=== PATIENT | male | born 1995 | race African-American/Black ===

== ENCOUNTER 2018-10-08 22:26 | Emergency (ER) | payer OTHER, SELFPAY ==
--- NOTE | 2018-10-09 00:27 | ER ---
Nurse's Notes [facility] Name: Cuate Regalado Age: 23 yrs Sex: Male : 1995 Arrival Date: 10/08/2018 Time: 22:27 Bed 14 Private MD: Diagnosis: Encounter for general adult medical examination without abnormal findings Presentation: 10/08 22:59 Presenting complaint: Patient states: he has had abdominal pain over the weekend with 3 bb episodes of vomiting Tuesday night and diarrhea, pt states pain has improved but he missed 2 days of work and needs a work note. 23:46 Transition of care: patient was not received from another setting of care. Onset of ak1 symptoms is unknown. Risk Assessment: Do you want to hurt yourself or someone else? Patient reports no desire to harm self or others. Initial Sepsis Screen: Does the patient meet any 2 criteria? No. Patient's initial sepsis screen is negative. Does the patient have a suspected source of infection? No. Patient's initial sepsis screen is negative. Care prior to arrival: None. 23:46 Method Of Arrival: Ambulatory ak1 23:46 Acuity: ALEJANDRO 4 ak1 Triage Assessment: 23:01 General: Appears in no apparent distress. Behavior is calm, cooperative. Pain: bb Complains of pain in abdomen Pain currently is 6 out of 10 on a pain scale. Pain began 2-3 days ago. Is intermittent. Neuro: Level of Consciousness is awake, alert, obeys commands, Oriented to person, place, time, situation. Cardiovascular: No deficits noted. Respiratory: Respiratory effort is even, unlabored, Respiratory pattern is regular. GI: Abdomen is non-distended, Reports lower abdominal pain, diarrhea, vomiting. Derm: Skin is dry, Skin is normal, Skin temperature is warm. Musculoskeletal: Circulation, motion, and sensation intact. Historical: - Allergies: 23:01 No Known Allergies; bb - Home Meds: 23:01 None [Active]; bb - PMHx: 23: None; bb - PSHx: 23:01 None; bb - Immunization history:: Adult Immunizations up to date. - Social history:: Smoking status: Patient/guardian denies using tobacco, Patient uses alcohol, occasionally. Patient/guardian denies using IV drugs. - Ebola Screening: : No symptoms or risks identified at this time. Screenin:44 Abuse screen: Denies threats or abuse. Denies injuries from another. Nutritional ak1 screening: No deficits noted. Tuberculosis screening: No symptoms or risk factors identified. Fall Risk None identified. Assessment: 23:44 General: Appears in no apparent distress. Behavior is calm, cooperative. Pain: ak1 Complains of pain in abdomen. Neuro: No deficits noted. Cardiovascular: No deficits noted. Respiratory: No deficits noted. GI: Bowel sounds present X 4 quads. Abd is soft and non tender Reports lower abdominal pain, upper abdominal pain, vomiting and diarrhea that started Tuesday that has since resolved. : No signs and/or symptoms were reported regarding the genitourinary system. EENT: No signs and/or symptoms were reported regarding the EENT system. Derm: No signs and/or symptoms reported regarding the dermatologic system. Musculoskeletal: No signs and/or symptoms reported regarding the musculoskeletal system. Vital Signs: 23:01 BP 161 / 95; Pulse 78; Resp 16 S; Temp 98.4(O); Pulse Ox 100% on R/A; Weight 88.45 kg bb (R); Height 5 ft. 7 in. (170.18 cm) (R); Pain 6/10; 23:01 Body Mass Index 30.54 (88.45 kg, 170.18 cm) bb ED Course: 22:27 Patient arrived in ED. am2 23:01 Arm band placed on Patient placed in waiting room, Patient notified of wait time. bb 23:33 Goldie Chwodary, RN is Primary Nurse. ak1 23:34 Rafat Rogers PA is PHCP. jr8 23:34 Rod Valentine MD is Attending Physician. jr8 23:44 Patient has correct armband on for positive identification. Bed in low position. Call ak1 light in reach. Side rails up X 1. Pulse ox on. NIBP on. 23:46 Triage completed. ak1 0204 00:38 No provider procedures requiring assistance completed. Patient did not have IV access ak1 during this emergency room visit. Administered Medications: No medications were administered Outcome: 00:27 Discharge ordered by . jr8 00:39 Discharged to home ambulatory. ak1 00:39 Condition: stable 00:39 Discharge instructions given to patient, Instructed on discharge instructions, follow up and referral plans. Demonstrated understanding of instructions, follow-up care. 00:44 Patient left the ED. ak1 Signatures: Madeline Yu RN RN bb Rafat Rogers PA PA jr8 Goldie Chowdary RN RN ak1 She Hernadez am2
--- NOTE | 2018-10-09 00:27 | EDPHYS ---
Physician Documentation [facility] Name: Cuate Regalado Age: 23 yrs Sex: Male : 1995 Arrival Date: 10/08/2018 Time: 22:27 Bed 14 Private MD: ED Physician Rod Valentine HPI: 10/09 00:24 This 23 yrs old Black Male presents to ER via Ambulatory with complaints of Abdominal jr8 Pain. 00:24 The patient presents with abdominal pain that is diffuse. Onset: The symptoms/episode jr8 began/occurred acutely, 4 day(s) ago. The symptoms do not radiate. Associated signs and symptoms: Pertinent positives: nausea, vomiting, and diarrhea. The symptoms are described as crampy. Modifying factors: The symptoms are alleviated by nothing, the symptoms are aggravated by food. Severity of pain: At its worst the pain was moderate in the emergency department the pain has resolved 2 day(s) prior to arrival. The patient has not experienced similar symptoms in the past. The patient has not recently seen a physician. Stated that he came tonight because has had a couple of bouts of mild abdominal pain again and needed a work note. Wanted to make sure his abdomen was getting better. All vomiting and diarrhea has since resolved . Historical: - Allergies: 10/08 23:01 No Known Allergies; bb - Home Meds: 23:01 None [Active]; bb - PMHx: 23:01 None; bb - PSHx: 23:01 None; bb - Immunization history:: Adult Immunizations up to date. - Social history:: Smoking status: Patient/guardian denies using tobacco, Patient uses alcohol, occasionally. Patient/guardian denies using IV drugs. - Ebola Screening: : No symptoms or risks identified at this time. ROS: 10/09 00:24 Eyes: Negative for injury, pain, redness, and discharge, ENT: Negative for injury, jr8 pain, and discharge, Neck: Negative for injury, pain, and swelling, Cardiovascular: Negative for chest pain, palpitations, and edema, Respiratory: Negative for shortness of breath, cough, wheezing, and pleuritic chest pain, Back: Negative for injury and pain, MS/Extremity: Negative for injury and deformity, Skin: Negative for injury, rash, and discoloration, Neuro: Negative for headache, weakness, numbness, tingling, and seizure. Abdomen/GI: Positive for abdominal pain, Negative for nausea, vomiting, and diarrhea, abdominal distension, anorexia, dysphagia, hematemesis, black/tarry stool, rectal pain, rectal bleeding, bowel incontinence, flatulence. Exam: 00:24 Eyes: Pupils equal round and reactive to light, extra-ocular motions intact. Lids and jr8 lashes normal. Conjunctiva and sclera are non-icteric and not injected. Cornea within normal limits. Periorbital areas with no swelling, redness, or edema. ENT: Nares patent. No nasal discharge, no septal abnormalities noted. Tympanic membranes are normal and external auditory canals are clear. Oropharynx with no redness, swelling, or masses, exudates, or evidence of obstruction, uvula midline. Mucous membranes moist. Neck: Trachea midline, no thyromegaly or masses palpated, and no cervical lymphadenopathy. Supple, full range of motion without nuchal rigidity, or vertebral point tenderness. No Meningismus. Cardiovascular: Regular rate and rhythm with a normal S1 and S2. No gallops, murmurs, or rubs. Normal PMI, no JVD. No pulse deficits. Respiratory: Lungs have equal breath sounds bilaterally, clear to auscultation and percussion. No rales, rhonchi or wheezes noted. No increased work of breathing, no retractions or nasal flaring. Abdomen/GI: Soft, non-tender, with normal bowel sounds. No distension or tympany. No guarding or rebound. No evidence of tenderness throughout. Back: No spinal tenderness. No costovertebral tenderness. Full range of motion. Skin: Warm, dry with normal turgor. Normal color with no rashes, no lesions, and no evidence of cellulitis. MS/ Extremity: Pulses equal, no cyanosis. Neurovascular intact. Full, normal range of motion. Neuro: Awake and alert, GCS 15, oriented to person, place, time, and situation. Cranial nerves II-XII grossly intact. Motor strength 5/5 in all extremities. Sensory grossly intact. Cerebellar exam normal. Normal gait. Vital Signs: 10/08 23:01 BP 161 / 95; Pulse 78; Resp 16 S; Temp 98.4(O); Pulse Ox 100% on R/A; Weight 88.45 kg bb (R); Height 5 ft. 7 in. (170.18 cm) (R); Pain 6/10; 23:01 Body Mass Index 30.54 (88.45 kg, 170.18 cm) bb MDM: 23:35 Patient medically screened. jr8 10/09 00:24 Data reviewed: vital signs, nurses notes, and as a result, I will discharge patient. jr8 Data interpreted: Pulse oximetry: on room air is 100 %. Interpretation: normal. Counseling: I had a detailed discussion with the patient and/or guardian regarding: the historical points, exam findings, and any diagnostic results supporting the discharge/admit diagnosis, the need for outpatient follow up, a family practitioner, to return to the emergency department if symptoms worsen or persist or if there are any questions or concerns that arise at home. Administered Medications: No medications were administered Disposition: 02:52 Co-signature as Attending Physician, Rod Valentine MD. Disposition: 10/09/18 00:27 Discharged to Home. Impression: Encounter for general adult medical examination without abnormal findings. - Condition is Stable. - Discharge Instructions: Abdominal Pain, Adult. - Work release form, Medication Reconciliation Form, Thank You Letter, Antibiotic Education, Prescription Opioid Use form. - Follow up: Private Physician; When: As needed; Reason: Recheck today's complaints, Continuance of care, Re-evaluation by your physician. - Problem is new. - Symptoms have improved. Signatures: Madeline Yu RN RN bb Rafat Rogers PA PA jr8 Goldie Chowdary RN RN ak1 Rod Valentine MD MD Corrections: (The following items were deleted from the chart) 00:44 00:27 10/09/2018 00:27 Discharged to Home. Impression: Encounter for general adult ak1 medical examination without abnormal findings. Condition is Stable. Forms are Medication Reconciliation Form, Thank You Letter, Antibiotic Education, Prescription Opioid Use. Follow up: Private Physician; When: As needed; Reason: Recheck today's complaints, Continuance of care, Re-evaluation by your physician. Problem is new. Symptoms have improved. jr8
[2018-10-09 02:27] VITALS: BP 161/95; TEMP 98.4; O2SAT 100
== END 2018-10-09 00:44 | disposition home or self-care (01) ==
LOC: ER 22:26
DX: Z00.00 Encounter for general adult medical examination without abnormal findings (principal)
CPT/HCPCS: 99283